=== PATIENT | male | born 1995 | race African-American/Black ===

== ENCOUNTER 2018-12-24 02:07 | Emergency (ER) | payer SELFPAY ==
[~2018-12-24] VITALS: Ht 170.2 cm; Wt 56.7 kg
--- NOTE | 2018-12-24 02:08 | NUR ---
CALLED FOR TRIAGE. NOT IN WAITING ROOM
--- NOTE | 2018-12-24 02:29 | NUR ---
ED Nurse Note: PATIENT AMBULATED TO ED C/O PAINFUL URINATION X 2 DAYS. REQUEST STD TEST; REPORTS NEW SEXUAL PARNTERS. AO4. NAD. VSS. URINE COLLECTED; SENT DOWN TO LAB.
[2018-12-24 02:30] VITALS: BP 117/78
[2018-12-24] MEDS ORDERED: DOXYCYCLINE MO100 MG ORAL (02:48)
--- NOTE | 2018-12-24 02:55 | NUR ---
ER DISCHARGE NOTE: Patient is cleared to be discharged per ERMD, pt is aox4, on room air, with stable vital signs. pt was given dc and prescription instructions, pt was able to verbalize understanding, pt id band removed. pt is able to ambulate with steady gait. pt took all belongings.
[2018-12-24 02:56] VITALS: BP 117/78
[2018-12-24] MEDS ORDERED: Lidocaine 1% MPF 10mg/ml 5ml INJ ONE (03:00)
[2018-12-25] MEDS ORDERED: POLYTRIM OP SOL10 ML OPHTHALM (22:29)
--- NOTE | 2018-12-31 18:13 | Emergency Room Report ---
History of Present Illness General Chief Complaint: Male Urogenital Problems Source: Patient Present Illness HPI Patient is a 23-year-old male who presented after increased burning with urination. He reports of increased urethral discharge. States he has prior history of genital herpes. He denies any recent skin outbreak. Reports having recent unprotected sex. He states subsequently began to have increased discomfort when urinating. He denies any fever. He denies any flank pain. He denies any hematuria or testicular swelling. Allergies: Coded Allergies: No Known Allergies (Unverified , 12/24/18) Patient History Past Medical History: see triage record Reviewed Nursing Documentation: PMH: Agreed; PSxH: Agreed Nursing Documentation-PMH Past Medical History: No Stated History Review of Systems All Other Systems: negative except mentioned in HPI Physical Exam Sp02 EP Interpretation: reviewed, normal General Appearance: normal inspection, well appearing, no apparent distress, alert, GCS 15 Head: atraumatic ENT: normal ENT inspection, hearing grossly normal, normal voice Neck: normal inspection, full range of motion, supple, no bony tend Respiratory: normal inspection, lungs clear, normal breath sounds, no respiratory distress, no retraction, no wheezing Cardiovascular #1: regular rate, rhythm, no edema Gastrointestinal: normal inspection, normal bowel sounds, non tender, soft, no guarding, no hernia Genitourinary: no CVA tenderness Musculoskeletal: normal inspection, back normal, normal range of motion Neurologic: normal inspection, alert, oriented x3, responsive, 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 Differential diagnosis include was not limited to urethritis, herpes, Marilyn's syndrome among others. Patient has a benign exam and does not appear to require any further imaging or laboratory testing at this time. Patient has a history significant for unprotected sex and likely sexual transmitted disease. Patient will be given empiric treatment with Rocephin as well as doxycycline. Patient advised to follow-up for further STD testing. Patient advised to return if worse. Status: improved Disposition: HOME, SELF-CARE Condition: Stable Patient Instructions: Urethritis, Adult Miguelito Denton MD Dec 31, 2018 18:13
== END 2018-12-24 02:55 | disposition home or self-care (01) ==
LOC: EMR 02:35
DX: N34.2 Other urethritis (principal)
CPT/HCPCS: 96372; 99283; J0696

== ENCOUNTER 2018-12-25 21:54 | Emergency (ER) | payer SELFPAY ==
[~2018-12-25] VITALS: Ht 170.2 cm; Wt 56.7 kg
[~2018-12-25 21:54] MED LIST: DOXYCYCLINE MO100 MG ORAL
--- NOTE | 2018-12-25 22:22 | NUR ---
ED Nurse Note: pt walked in c/o redness and discomfort in right eye since yesterday. will cont monitor. denies vision changes.
[2018-12-25 22:23] VITALS: BP 103/64
--- NOTE | 2018-12-25 22:25 | Emergency Room Report ---
History of Present Illness General Chief Complaint: Eye Problems Source: Patient, Medical Record Present Illness HPI This is a 23-year-old male with no past medical history. He presents with chief complaint of eye redness. Denies any trauma. Ongoing since last night. His brother was sick with the same thing. Has discharge and itchiness. No nausea no vomiting. No cough or congestion. Allergies: Coded Allergies: No Known Allergies (Unverified , 12/24/18) Patient History Past Medical History: none, see triage record, old chart reviewed Past Surgical History: none Pertinent Family History: none Social History: Denies: smoking Immunizations: other Reviewed Nursing Documentation: PMH: Agreed; PSxH: Agreed Review of Systems Eye: Reports: eye pain, blurred vision, discharge ENT: Denies: ear pain, nose congestion, throat swelling Respiratory: Denies: cough, shortness of breath Cardiovascular: Denies: chest pain, palpitations Gastrointestinal: Denies: abdominal pain, diarrhea, nausea, vomiting Musculoskeletal: Denies: back pain, joint pain Skin: Denies: rash Neurological: Denies: headache, numbness Endocrine: Denies: increased thirst, increased urine Hematologic/Lymphatic: Denies: easy bruising All Other Systems: negative except mentioned in HPI Physical Exam Vital Signs Date Time Temp Pulse Resp B/P (MAP) Pulse Ox O2 Delivery O2 Flow Rate FiO2 12/25/18 22:12 98.4 78 18 94/64 (74) 97 Room Air Vitals normal Sp02 EP Interpretation: reviewed, normal General Appearance: well appearing, no apparent distress, alert Head: normocephalic, atraumatic Eyes: bilateral eye PERRL, bilateral eye EOMI, bilateral eye other - Right conjunctiva injected. Left is mildly injected. Bilateral mild edema to the lids. ENT: hearing grossly normal, normal pharynx Neck: full range of motion, supple, no meningismus Respiratory: chest non-tender, lungs clear, normal breath sounds Cardiovascular #1: regular rate, rhythm, no murmur Gastrointestinal: normal bowel sounds, non tender, no mass, no organomegaly, no bruit, non-distended Musculoskeletal: back normal, gait/station normal, normal range of motion Psychiatric: mood/affect normal Medical Decision Making Diagnostic Impression: Primary Impression: Conjunctivitis Qualified Codes: H10.33 - Unspecified acute conjunctivitis, bilateral ER Course Patient presents with conjunctivitis. Most likely viral in nature. We will go ahead and treat with antibiotics however. No evidence of foreign body. Negative globe rupture. Last Vital Signs Date Time Temp Pulse Resp B/P (MAP) Pulse Ox O2 Delivery O2 Flow Rate FiO2 12/25/18 22:12 98.4 78 18 94/64 (74) 97 Room Air Status: unchanged Disposition: HOME, SELF-CARE Condition: Stable Scripts Polymyxin/Trimethoprim (Polytrim Eye Drops) 10 Ml Drops 2 DROP OPHTHALM THREE TIMES A DAY, #1 EA Instill in affected eye for 7 days Prov: Solo Jones MD 12/25/18 Patient Instructions: Bacterial Conjunctivitis Additional Instructions: Follow-up with your doctor in 7 days. Return if symptoms worsen. Solo Jones MD Dec 25, 2018 22:25
[2018-12-25] MEDS ORDERED: POLYTRIM OP SOL10 ML OPHTHALM (22:29)
--- NOTE | 2018-12-25 22:32 | NUR ---
ED Nurse Note: pt cleared to be d/c per ERMD, pt discharge and aftercare instruction provided w/ prescription, pt education done via discussion and handout, pt advised to follow up with pcp or return to ed if changes in condition, vss, ambulatory w/ steady gait, left w/ all belongings.
[2018-12-25 22:33] VITALS: BP 103/64
== END 2018-12-25 22:35 | disposition home or self-care (01) ==
LOC: EMR 22:10
DX: H10.33 Unspecified acute conjunctivitis, bilateral (principal)
CPT/HCPCS: 99282

== ENCOUNTER 2019-04-23 17:35 | Emergency (ER) | payer SELFPAY ==
[~2019-04-23] VITALS: Ht 170.2 cm; Wt 59.9 kg
[~2019-04-23 17:35] MED LIST changes: +POLYTRIM OP SOL10 ML OPHTHALM
[2019-04-23 18:00] VITALS: BP 117/76
--- NOTE | 2019-04-23 18:00 | NUR ---
ED Nurse Note: pt walked in to ER from home due to flu like symptom such as bodyache, cough, chills for one day. pt aao x4 and ambulatory. calm and cooperative. no cardiac or pulmonary distress noted at this time.
--- NOTE | 2019-04-23 18:06 | Emergency Room Report ---
History of Present Illness General Chief Complaint: Flu Like Symptoms Source: Patient Present Illness HPI 23 YO male presents to the ED c/o cough, nasal congestion, rhinorrhea, 7/10 in severity body-aches, fevers, chills and vomiting x 2 days. Reports brother who he lives with had similar symptoms first and is currently taking Tamiflu for influenza. Pt. reports that he has not taken any OTC medication for his symptoms. Pt. reports last episode of vomiting was this am. Denies blood in the stool, denies constipation or diarrhea. He denies abdominal pain when not vomiting/ at rest. pt. denies recent travel. Pt. reports he received all childhood vaccinations but does not get flu shots as he rarely gets sick. Pt. denies any other aggravating or relieving factors at this time. Denies neck pain /stiffness, photophobia, CP, palpitations, SOB or wheezing. Allergies: Coded Allergies: No Known Allergies (Unverified , 12/24/18) Patient History Past Medical History: see triage record Past Surgical History: none Pertinent Family History: none Reviewed Nursing Documentation: PMH: Agreed; PSxH: Agreed Nursing Documentation-PMH Past Medical History: No Stated History Hx Hypertension: Yes Review of Systems All Other Systems: negative except mentioned in HPI Physical Exam Vital Signs Date Time Temp Pulse Resp B/P (MAP) Pulse Ox O2 Delivery O2 Flow Rate FiO2 04/23/19 17:50 99.7 90 18 117/76 (90) 96 Room Air Sp02 EP Interpretation: reviewed, normal General Appearance: no apparent distress, alert, GCS 15, non-toxic Head: normocephalic, atraumatic Eyes: bilateral eye normal inspection, bilateral eye PERRL ENT: hearing grossly normal, normal pharynx, normal voice, TMs + canals normal , uvula midline, moist mucus membranes, pharyngeal erythema Neck: full range of motion, no meningismus, no bony tend Respiratory: chest non-tender, lungs clear, normal breath sounds, no respiratory distress, no wheezing, speaking full sentences Cardiovascular #1: regular rate, rhythm, normal capillary refill Gastrointestinal: normal bowel sounds, non tender, soft, non-distended Musculoskeletal: normal range of motion, gait/station normal, non-tender Neurologic: alert, motor strength/tone normal, oriented x3, sensory intact, responsive, speech normal Psychiatric: judgement/insight normal Skin: no rash, normal color, normal inspection Lymphatic: no adenopathy Medical Decision Making PA Attestation Dr. Denton is my supervising Physician whom patient management has been discussed with. Diagnostic Impression: Primary Impression: Acute viral syndrome ER Course 23 YO male presents to the ED c/o cough, nasal congestion, rhinorrhea, 7/10 in severity body-aches, fevers, chills and vomiting x 2 days. Reports brother who he lives with had similar symptoms first and is currently taking Tamiflu for influenza. Pt. reports that he has not taken any OTC medication for his symptoms. Pt. reports last episode of vomiting was this am. Denies blood in the stool, denies constipation or diarrhea. He denies abdominal pain when not vomiting/ at rest. pt. denies recent travel. Pt. reports he received all childhood vaccinations but does not get flu shots as he rarely gets sick. Pt. denies any other aggravating or relieving factors at this time. Denies neck pain /stiffness, photophobia, CP, palpitations, SOB or wheezing. Ddx considered but are not limited to URI, pneumonia, PE, strep pharyngitis, meningitis, influenza, OM/OE, or Gastritis just to name a few. Vital signs: Pt. is afebrile, the remaining VS are WNL H&PE are most consistent with Viral Syndrome suspicious for Influenza will treat clinically - no meningeal signs, Lungs are clear and oropharynx is not involved, no evidence of bacterial infection at this time. ORDERS: none required at this time, the diagnosis is clinical ED INTERVENTIONS: - Zofran ODT -Tylenol PO --PT. EDUCATION: --I discussed with this patient that I will be prescribing Tamiflu which is an antiviral. This medication is not always covered by insurance and is not always available at pharmacies. I educated patient that this medication has been shown to reduce symptoms by 1 day, and if unable to obtain there is no alternative, and to continue conservative treatment. DISCHARGE: At this time pt. is stable for d/c to home. Will provide printed patient care instructions, and any necessary prescriptions. Care plan and follow up instructions have been discussed with the patient prior to discharge. Last Vital Signs Date Time Temp Pulse Resp B/P (MAP) Pulse Ox O2 Delivery O2 Flow Rate FiO2 04/23/19 17:50 99.7 90 18 117/76 (90) 96 Room Air Disposition: HOME, SELF-CARE Condition: Stable Scripts Oseltamivir Phosphate (Tamiflu) 75 Mg Capsule 75 MG ORAL TWICE A DAY for 5 Days, #10 CAP Prov: Melinda Hale 04/23/19 Acetaminophen* (TYLENOL EXTRA STRENGTH*) 500 Mg Tablet 500 MG ORAL Q6H PRN for Mild Pain/Temp > 100.5, #30 TAB 0 Refills Prov: Melinda Hale 04/23/19 Codeine/Promethazine Hcl* (PROMETHAZINE-CODEINE SYRUP*) 118 Ml Syrup 5 ML ORAL Q6H PRN for For Cough, #120 ML 0 Refills Prov: Melinda Hale 04/23/19 Ondansetron Odt* (ZOFRAN ODT*) 4 Mg Tab.rapdis 4 MG BC EVERY 6 HOURS PRN for Nausea & Vomiting, #10 TAB 0 Refills Prov: Melinda Hale 04/23/19 Departure Forms: Return to Work Return to Work Date: Apr 27, 2019 Work Restrictions: None Other Restrictions: May return Sooner if Symptoms have resolved. Patient Instructions: Influenza, Adult, [id number] Additional Instructions: Take medications as directed. Follow up with a Primary Care Provider in 3-5 days, even if your symptoms have resolved. --Please review list of primary care clinics, if you do not already have a primary care provider Return sooner to ED if new symptoms occur, or current symptoms become worse. Do not drink alcohol, drive, or operate heavy machinery while taking Cough Syrup as this may cause drowsiness. - Please note that this Emergency Department Report was dictated using [employer] washer technology software, occasionally this can lead to erroneous entry secondary to interpretation by the dictation equipment. Melinda Hale Apr 23, 2019 18:06
[2019-04-23] MEDS ORDERED: TYLENOL EXTRA500 MG ORAL (18:28)
[2019-04-23] MEDS ORDERED: PROMETHAZINE-C118 M1 ORAL (18:28)
[2019-04-23] MEDS ORDERED: ONDANSETRON ODT4 MG BC (18:28)
[2019-04-23] MEDS ORDERED: TAMIFLU75 MG ORAL (18:38)
[2019-04-23 18:53] VITALS: BP 126/78
--- NOTE | 2019-04-23 18:54 | NUR ---
ED Nurse Note: Pt cleared by health care Provider for discharge. DC instructions/prescription was given and explained to pt and verbalized understanding of teachings. All medical deviecs such as ID band removed. Pt is AAO x4, ambulatory and left with all personal belongings.
== END 2019-04-23 18:56 | disposition home or self-care (01) ==
LOC: EMR 18:16
DX: J06.9 Acute upper respiratory infection, unspecified (principal); I10 Essential (primary) hypertension
CPT/HCPCS: 99283

== ENCOUNTER 2019-06-20 22:21 | Emergency (ER) | payer SELFPAY ==
[~2019-06-20] VITALS: Ht 170.2 cm; Wt 59.0 kg
[~2019-06-20 22:21] MED LIST changes: +ONDANSETRON ODT4 MG BC; +PROMETHAZINE-C118 M1 ORAL; +TAMIFLU75 MG ORAL; +TYLENOL EXTRA500 MG ORAL
--- NOTE | 2019-06-20 22:45 | NUR ---
ED Nurse Note: Recieved pt from home, pt was seen here 2 days ago for nausea and vomiting, all s/s resolved and pt needs note to return to work.
--- NOTE | 2019-06-20 22:58 | Emergency Room Report ---
History of Present Illness General Chief Complaint: Vomiting Source: Patient Present Illness HPI Is a 23-year-old male with no past medical history. He presents with complaint of nausea and vomiting. He went to a potluck dinner at the [employer] last night. He had nausea vomiting this morning. He missed work. He had one episode of vomiting tonight. He said he felt better now. His girlfriend was also sick. 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 Patient denies any diarrhea. No abdominal pain. No symptoms right now. Allergies: Coded Allergies: No Known Allergies (Unverified , 12/24/18) Patient History Past Medical History: see triage record, old chart reviewed Past Surgical History: none Pertinent Family History: none Social History: Denies: smoking Immunizations: other Reviewed Nursing Documentation: PMH: Agreed; PSxH: Agreed Nursing Documentation-PM Past Medical History: No Stated History Hx Hypertension: Yes Review of Systems Eye: Denies: eye pain, blurred vision ENT: Denies: ear pain, nose congestion, throat swelling Respiratory: Denies: cough, shortness of breath Cardiovascular: Denies: chest pain, palpitations Gastrointestinal: Reports: diarrhea, nausea; Denies: abdominal pain, vomiting Musculoskeletal: Denies: back pain, joint pain Skin: Denies: rash Neurological: Denies: headache, numbness Endocrine: Denies: increased thirst, increased urine Hematologic/Lymphatic: Denies: easy bruising All Other Systems: negative except mentioned in HPI Physical Exam Vital Signs Date Time Temp Pulse Resp B/P (MAP) Pulse Ox O2 Delivery O2 Flow Rate FiO2 06/20/19 22:31 98.1 67 18 113/77 (89) 95 Room Air Vitals normal Sp02 EP Interpretation: reviewed, normal General Appearance: well appearing, no apparent distress, alert Head: normocephalic, atraumatic Eyes: bilateral eye PERRL, bilateral eye EOMI ENT: hearing grossly normal, normal pharynx Neck: full range of motion, supple, no meningismus Respiratory: chest non-tender, lungs clear, normal breath sounds Cardiovascular #1: regular rate, rhythm, no murmur Gastrointestinal: normal bowel sounds, non tender, no mass, no organomegaly, no bruit, non-distended Musculoskeletal: back normal, normal range of motion, gait/station normal Psychiatric: mood/affect normal Medical Decision Making Diagnostic Impression: Primary Impression: Vomiting Qualified Codes: R11.2 - Nausea with vomiting, unspecified ER Course Patient presents with nausea and vomiting. May be foodborne related. No symptoms right now. No evidence of acute abdomen obstruction. Will discharge home. Last Vital Signs Date Time Temp Pulse Resp B/P (MAP) Pulse Ox O2 Delivery O2 Flow Rate FiO2 06/20/19 22:31 98.1 67 18 113/77 (89) 95 Room Air Status: improved Disposition: HOME, SELF-CARE Condition: Stable Patient Instructions: Nausea and Vomiting, Adult Additional Instructions: Follow-up with your doctor in 7 days. Return if worse. Solo Jones MD Jun 20, 2019 22:58
[2019-06-20 23:10] VITALS: BP 113/77
--- NOTE | 2019-06-20 23:10 | NUR ---
ER DISCHARGE NOTE: Patient is cleared to be discharged per ERMD, pt is aox4, on room air, with stable vital signs. pt was given dc and prescription instructions, pt was able to verbalize understanding, pt id band removed without complications. pt is able to ambulate with steady gait. pt took all belongings.
== END 2019-06-20 23:10 | disposition home or self-care (01) ==
LOC: EMR 23:00
DX: R11.2 Nausea with vomiting, unspecified (principal); I10 Essential (primary) hypertension
CPT/HCPCS: 99282

== ENCOUNTER 2019-08-27 09:11 | Emergency (ER) | payer SELFPAY ==
[~2019-08-27] VITALS: Ht 170.2 cm; Wt 59.9 kg
[2019-08-27 09:22] VITALS: BP 126/83
--- NOTE | 2019-08-27 09:24 | NUR ---
ED Nurse Note: Patient walked in to ED from home c/o 02/24 sharp, aching right shoulder pain x 3 days. Patient states that the pain started while he was sleeping and he woke up with it after sleeping with his neck turned. Patient denies any recent injury or fall. Patient AxO x 4, no s/s of acute distress.
--- NOTE | 2019-08-27 09:27 | NUR ---
ED Nurse Note: Dr. Walker at bedside.
[2019-08-27] MEDS ORDERED: Ketorolac 30mg Inj IM ONE (09:45)
[2019-08-27] MEDS ORDERED: Methocarbamol 750mg tab ORAL ONE (09:45)
--- NOTE | 2019-08-27 09:47 | Emergency Room Report ---
History of Present Illness General Chief Complaint: Pain Source: Patient Present Illness HPI 23-year-old male presents ED for evaluation of right shoulder pain. Started 3 days ago. States he woke up with the pain. Started in his neck radiating down his right shoulder through his arm. States he sometimes sleeps in odd positions. States he has taken ibuprofen with some relief but pain persist. Denies any fall or injury. Denies any fevers or chills. Denies headache. Denies neck stiffness. Denies any arm weakness. No other aggravating relieving factors. Denies any other associated symptoms Allergies: Coded Allergies: No Known Allergies (Unverified , 12/24/18) COVID-19 Screening Contact w/high risk pt: No Recent Travel to affected area: No Experienced COVID-19 symptoms?: No Patient History Past Surgical History: none Pertinent Family History: none Social History: Denies: smoking, alcohol use, drug use Immunizations: UTD Reviewed Nursing Documentation: PMH: Agreed; PSxH: Agreed Nursing Documentation-PMH Past Medical History: No Stated History Hx Hypertension: Yes Review of Systems All Other Systems: negative except mentioned in HPI Physical Exam Vital Signs Date Time Temp Pulse Resp B/P (MAP) Pulse Ox O2 Delivery O2 Flow Rate FiO2 08/27/19 09:17 98.1 69 17 126/83 (97) 97 Room Air Sp02 EP Interpretation: reviewed, normal General Appearance: no apparent distress, alert, GCS 15, non-toxic Head: normocephalic Eyes: bilateral eye normal inspection, bilateral eye PERRL ENT: normal ENT inspection Neck: full range of motion, supple, no meningismus, supple/symm/no masses Respiratory: normal inspection Cardiovascular #1: normal inspection Gastrointestinal: normal inspection Rectal: deferred Genitourinary: no CVA tenderness Musculoskeletal: back normal, normal range of motion, gait/station normal, tender - R shoulder, RUE Neurologic: alert, motor strength/tone normal, oriented x3, sensory intact, responsive, speech normal Psychiatric: normal inspection Skin: no rash Lymphatic: normal inspection Procedures Splinting Splinting : Consent: Verbal Pre-Made Type: sling Pre-Proc Neuro Vasc Exam: normal Post-Proc Neuro Vasc Exam: normal Patient Tolerated: Well Complications: None Medical Decision Making Diagnostic Impression: Primary Impression: Right shoulder strain Qualified Codes: S46.911A - Strain of unspecified muscle, fascia and tendon at shoulder and upper arm level, right arm, initial encounter ER Course Hospital Course 23-year-old male presents to ED complaining of R shoulder/arm pain no trauma Differential diagnoses include: Fracture, dislocation, sprain, contusion, bursitis Clinical course Patient placed on stretcher. After initial history, physical exam reveals a male in no acute distress. There is some tenderness to the right shoulder and to the right bicep. No bony tenderness. Full range of motion noted. No swelling. I discussed findings with patient. Likely muscular. No signs of infection. No indication for x-rays or imaging at this time. Patient agrees I ordered Toradol, Robaxin, Lidoderm with pain improving. Placed in sling. Safe for discharge for close outpatient follow-up. I will provide Ortho referrals Diagnosis - R shoulder strain stable and discharged to home with prescription for Motrin, robaxin, lidoderm, tylenol #3. Followup with PMD/ortho. Return to ED if symptoms recur or worsen Last Vital Signs Date Time Temp Pulse Resp B/P (MAP) Pulse Ox O2 Delivery O2 Flow Rate FiO2 08/27/19 09:22 98.1 71 17 126/83 97 Room Air Status: improved Disposition: HOME, SELF-CARE Condition: Stable Scripts Lidocaine Patch* (Lidoderm Patch*) 1 Each Adh..patch 1 PATCH TOPIC DAILY, #7 PATCH 0 Refills Patch(es) may remain in place for up to 12 hours in any 24-hour period. Prov: Caden Walker MD 08/27/19 Methocarbamol* (ROBAXIN-750*) 750 Mg Tablet 750 MG PO TID, #21 TAB 0 Refills Prov: Caden Walker MD 08/27/19 Acetaminophen With Codeine (T#3) (TYLENOL #3 TAB*) Y Tab 1 TAB ORAL Q8H PRN for For Pain, #12 TAB Prov: Caden Walker MD 08/27/19 Ibuprofen* (MOTRIN*) 600 Mg Tablet 600 MG ORAL Q8H PRN for FOR PAIN, #30 TAB 0 Refills Prov: Caden Walker MD 08/27/19 Referrals: NOT CHOSEN IPA/,REFERRING (PCP) Caden Walker MD Aug 27, 2019 09:47
[2019-08-27] MEDS ORDERED: LIDODERM700 M1 TOPIC (09:49)
[2019-08-27] MEDS ORDERED: ACETAMINOPHEN-1 EAC1 ORAL (09:49)
[2019-08-27] MEDS ORDERED: ROBAXIN-750750 MG PO (09:49)
[2019-08-27] MEDS ORDERED: IBUPROFEN600 M1 ORAL (09:49)
[2019-08-27 09:55] VITALS: BP 126/83
== END 2019-08-27 09:55 | disposition home or self-care (01) ==
LOC: EMR 09:26
DX: S46.911A Strain of unspecified muscle, fascia and tendon at shoulder and upper arm level, right arm, initial encounter (principal); X58.XXXA Exposure to other specified factors, initial encounter; Y92.9 Unspecified place or not applicable; I10 Essential (primary) hypertension
CPT/HCPCS: 29105; 96372; 99283; J1885